=== PATIENT | male | born 1995 | race African-American/Black ===

== ENCOUNTER 2019-01-04 18:24 | Emergency (ER) | payer OTHER ==
[2019-01-04 22:43] LABS: ALANINE AMINOTRANSFERASE 29 IU/L (13-69); ALBUMIN 4.7 g/dl (3.3-4.9); ALBUMIN/GLOBULIN RATIO 1.34; ALKALINE PHOSPHATASE 87 IU/L (42-121); ANION GAP 9 (5-13); ASPARTATE AMINO TRANSFERASE 30 IU/L (15-46); BILIRUBIN,INDIRECT 0.5 mg/dl (0-1.1); BILIRUBIN,TOTAL 0.5 mg/dl (0.2-1.3); BLOOD UREA NITROGEN 14 mg/dl (7-20); CALCIUM 10.2 mg/dl (8.4-10.2); CARBON DIOXIDE 30 mmol/L (21-31); CHLORIDE 100 mmol/L (97-110); CREATININE 1.13 mg/dl (0.61-1.24); Estimated GFR > 60 mL/min (>60); GLUCOSE 78 mg/dl (70-220); POTASSIUM 4.1 mmol/L (3.5-5.1); SODIUM 139 mmol/L (135-144); TOTAL PROTEIN 8.2 g/dl (6.1-8.1)
[2019-01-04 22:59] LABS: FREE T4 (FREE THYROXINE) 1.08 ng/dl (0.79-2.35)
== END 2019-01-04 23:39 | disposition left against medical advice (07) ==
LOC: FTE 18:24
DX: R25.1 Tremor, unspecified (principal); I10 Essential (primary) hypertension
CPT/HCPCS: 80053; 84439; 84443; 99283